=== PATIENT | male | born 1975 | race Two or more races ===

== ENCOUNTER 2025-01-17 21:08 | Emergency (ER) | payer MEDICAID, OTHER ==
[~2025-01-17] VITALS: Ht 177.8 cm; Wt 80.7 kg
[2025-01-17 21:16] VITALS: BP 166/114; PULSE 115; RESP 16; TEMP 99.6; O2SAT 96
[2025-01-17] MEDS ORDERED: IBUP-1456 PO (22:59)
[2025-01-17] MEDS ORDERED: DOXY100C4 PO (22:59)
--- NOTE | 2025-01-17 22:59 | ED.PDOC ---
History of Present Illness(SKN HPI Comments 49-year-old male presents to the ED chief complaint spider bite. This is possible spider bite to his hip times 2-3 days denies fever chills nausea vomiting or any other concerns. Chief Complaint: Animal Bite Time Seen by MD: 21:27 History of Present Illness: Nurses Notes, Medications, Allergies Allergies: Coded Allergies: NO KNOWN ALLERGIES (Unverified , 01/17/25) Home Meds Discontinued Scripts Doxycycline Hyclate (Doxycycline Hyclate) 100 Mg Cap, 100 MG PO BID for 7 Days, #14 CAP Prov:RADHA BUENO INVENTORY ASSOCIATE 01/17/25 Ibuprofen (Ibuprofen) 800 Mg Tab, 800 MG PO Q8HP PRN for 5 Days, #15 TAB Prov:RADHA BUENO INVENTORY ASSOCIATE 01/17/25 Information Source: Patient Mode of Arrival: Ambulatory Past Medical History PAST MEDICAL HISTORY: Denies Surgical History: Denies all surgeries Family History Family History: Unknown Social History Smoker: Non-Smoker Alcohol: Denies ETOH Use Drugs: Denies Drug Use All Other Systems: Reviewed and Negative (see hpi) Physical Exam General Appearance: No Apparent Distress, Normal HEENT: Pharynx Normal Neck: Full Range of Motion, Non-Tender Respiratory: Lungs Clear, No Respiratory Distress, Normal Breath Sounds Cardiovascular: No Murmur, Normal Peripheral Pulses, Regular Rate/Rhythm Breast Exam: Deferred Gastrointestinal: Non Tender, Soft Genitalia: Deferred Pelvic: Deferred Rectal: Deferred Extremities: Normal capillary refill, No pedal edema Musculoskeletal : Apperance: Normal Neurologic: Alert, No Motor Deficits, Normal Affect, Normal Mood, No Sensory Deficits Cerebellar Function: Normal, NOT DONE Reflexes: NOT DONE Skin: Dry, Normal Color, Warm, Wounds (Noted several indurated lesions with surrounding erythema no noted drainage or streaking to right lateral hip.) Lymphatic: No Adenopathy Was a procedure done? Was a procedure done?: No Differential Diagnosis (INTG) Differential Diagnosis: Abrasion, Cellulitis, Insect Envenomation Differential Diagnosis: Abscess X-Ray, Labs, Meds, VS Vital Signs Date Time Temp Pulse Resp B/P (MAP) Pulse Ox O2 Delivery O2 Flow Rate FiO2 01/17/25 21:16 99.6 115 16 166/114 96 99.6 Time of 1ST Reevaluation: 21:27 Reevaluation 1ST: Unchanged Time of 2ND Reevaluation: 22:57 Reevaluation 2ND: Improved Patient Education/Counseling: Diagnosis, Treatment, Prognosis, Need For Follow Up Family Education/Counseling: No Family Present SEPSIS Sepsis Screen Date sepsis recognized/suspect: Jan 17, 2025 Time Sepsis recognized/suspect: 2115 Recent Procedure: No On Antibiotic Therapy: No Respiratory Rate >20: No Heart Rate >90: Yes Temp<36 C (96.8 F) or >38.3 C: No SBP <90 or MAP <65 mmHG: No New Acute Mental Status Change: No Is the patient on CPAP, BIPAP,: No Vital Signs Date Time Temp Pulse Resp B/P (MAP) Pulse Ox O2 Delivery O2 Flow Rate FiO2 01/17/25 21:16 99.6 115 16 166/114 96 99.6 Departure 1 Departure Time of Disposition: 22:57 Impression: Primary Impression: Bug bite with infection Qualified Codes: W57.XXXA - Bitten or stung by nonvenomous insect and other nonvenomous arthropods, initial encounter Disposition: HOME / SELF CARE / HOMELESS Condition: Stable Discharged With: Self Critical Care Note Critical Care Time?: No Stability Stability form required: RADHA Goyal Jan 17, 2025 22:59
[2025-01-18] MEDS: cefTRIAXone SOD 1,000 MG VL IM ONE (00:41)
[2025-01-18] MEDS: HYDROcodone-ACET 5/325MG TAB PO ONE (00:41)
== END 2025-01-18 00:51 | disposition home or self-care (01) ==
LOC: ER 21:08
DX: T63.301A Toxic effect of unspecified spider venom, accidental (unintentional), initial encounter (principal); L08.9 Local infection of the skin and subcutaneous tissue, unspecified; Y92.89 Other specified places as the place of occurrence of the external cause
CPT/HCPCS: 96372; 99283; J0696